=== PATIENT | male | born 1965 | race Caucasian/White ===

== ENCOUNTER 2018-09-08 05:52 | Emergency (ER) | payer OTHER, SELFPAY ==
[2018-09-08 06:02] VITALS: BP 155/88; PULSE 85; RESP 20; TEMP 38.1; O2SAT 98; BMI 33.8
--- NOTE | 2018-09-08 06:04 | ED_ITS ---
HPI - General Adult General Chief complaint: Nausea/Vomiting/Diarrhea Stated complaint: Fever, had angiogram 0628 nausea and diarrhea Time Seen by Provider: 09/08/18 05:54 Source: patient Mode of arrival: ambulatory Limitations: no limitations History of Present Illness HPI narrative: 53-year-old male. Recently underwent a coronary angiography for evaluation of chest pain and abnormal EKG. He stated that he was told that is angiogram was unremarkable. Also has a history of hypothyroidism. States that this morning about 0500 hours started having some nausea. One episode of diarrhea. Episode of diarrhea last evening. Has epigastric abdominal discomfort. Also had a fever. States he just overall does not feel very well. Patient states that he thought he potentially had the start of shingles on his left side. He did take an antiviral this morning. Related Data Home Medications Medication Instructions Recorded Confirmed levothyroxine 75 mcg PO DAILY 09/08/18 09/08/18 valacyclovir [Valtrex] 500 mg PO BID 09/08/18 09/08/18 Allergies Allergy/AdvReac Type Severity Reaction Status Date / Time meperidine [From Demerol] Allergy Verified 09/08/18 06:08 Review of Systems Constitutional Reports fever(s) Cardiovascular Denies chest pain and Denies dyspnea Respiratory Denies dyspnea Gastrointestinal Gastrointestinal: Reports abdominal pain, Reports diarrhea and Reports nausea Genitourinary Denies dysuria Musculoskeletal Denies myalgias and Denies arthralgias Integumentary/Breasts Denies rash Neurologic Denies behavioral changes Psychiatric Denies behavioral changes Hematologic/Lymphatic Denies easy bleeding and Denies easy bruising [facility] Medical History Hypothyroid (Acute) Shingles (Acute) Social History Smoking Status: Never smoker Social History Smoking Status: Never smoker Exam Initial Vital Signs Initial Vital Signs: Vital Signs Temperature 100.6 F H 09/08/18 06:02 Pulse Rate 85 09/08/18 06:02 Respiratory Rate 20 09/08/18 06:02 Blood Pressure 155/88 H 09/08/18 06:02 Pulse Oximetry 98 09/08/18 06:02 Const General: cooperative, well developed, well groomed and No acute distress Orientation: alert, awake and oriented x3 HENMT Head: normal to inspection, normocephalic and atraumatic Mouth: oral mucosae normal Resp Effort & Inspection: normal respiratory effort Auscultation: clear to auscultation bilaterally Cardio Rate: regular rate Rhythm: regular rhythm GI Inspection: non-distended Palpation: soft, No firm and tender (Tender epigastrium) Back/Spine/Pelvis Back: No CVA tenderness Skin General: no rashes or lesions noted Lesions: no lesions Rashes: no rashes Other: No rash on the left flank or patient thought that he potentially has shingles Neuro General: alert, awake and oriented x3 Cognition: normal cognition Speech: speech normal Extrem General: normal to inspection and capillary refill normal Course Orders Ordered: Discontinued Medications Acetaminophen (Tylenol) 650 mg PO NOW ONE Stop: 09/08/18 06:18 Last Admin: 09/08/18 06:22 Dose: 650 mg Sodium Chloride (Normal Saline 0.9%) 1,000 mls @ 1,000 mls/hr IV BOLUS ONE Stop: 09/08/18 07:00 Last Infusion: 09/08/18 07:16 Dose: 0 mls/hr Admin: 09/08/18 06:14 Dose: 1,000 mls/hr Ondansetron HCl (Zofran) 4 mg IV NOW ONE Stop: 09/08/18 06:02 Last Admin: 09/08/18 06:14 Dose: 4 mg Vital Signs - 8 hr 09/08/18 06:02 Temperature 100.6 F H Pulse Rate 85 Respiratory Rate 20 Blood Pressure 155/88 H Pulse Oximetry 98 Medical Decision Making Lab Data Lab results reviewed: Yes I reviewed the patient's lab results. Result diagrams: 09/08/18 06:10 09/08/18 06:10 Lab Results 09/08/18 09/08/18 09/08/18 Range/Units 06:10 06:10 06:10 WBC 17.2 H (4.5-11.0) X10^3/uL RBC 5.29 (4.5-5.9) X10^6/uL Hgb 16.7 (13.5-17.5) g/dL Hct 47.7 (41-53) % MCV 90.2 (80-100) fL MCH 31.6 (26-34) PG MCHC 35.1 (30-36) % RDW 12.5 (11.6-14.8) % Plt Count 289 (150-400) X10^3/uL Neut % (Auto) 85.0 H (50-75) % Lymph % (Auto) 7.7 L (25-40) % Emanuel % (Auto) 6.5 (3-14) % Eos % (Auto) 0.4 L (2-4) % Baso % (Auto) 0.4 (0-2) % Neut # (Auto) 56213 H (7101-6734) /uL Lymph # (Auto) 1300 (3810-1560) /uL Emanuel # (Auto) 1100 H (0-900) /uL Eos # (Auto) 100 (0-450) /uL Baso # (Auto) 100 (0-100) /uL Sodium 139 (137-145) mmol/L Potassium 3.8 (3.4-5.1) mmol/L Chloride 101 (98-107) mmol/L Carbon Dioxide 25 (22-32) mmol/L BUN 14 (9-20) mg/dL Creatinine 1.00 (0.66-1.25) mg/dL Estimated GFR > 60.0 (>60) mL/min BUN/Creatinine Ratio 14.0 (6-22) Glucose 106 H (70-100) mg/dL Lactate (0.7-2.1) mmol/L Calcium 9.5 (8.4-10.2) mg/dL Total Bilirubin 0.7 (0.2-1.3) mg/dL AST 42 (17-59) IU/L ALT 41 (21-72) IU/L Alkaline Phosphatase 70 (38-126) U/L Total Protein 7.7 (6.3-8.2) g/dL Albumin 4.4 (3.5-5.0) g/dL Globulin 3.3 (1.7-4.1) g/dL Albumin/Globulin Ratio 1.3 (1.0-2.8) Lipase 85 (23-300) U/L Procalcitonin < 0.05 (<0.5) ng/mL 09/08/18 Range/Units 06:10 WBC (4.5-11.0) X10^3/uL RBC (4.5-5.9) X10^6/uL Hgb (13.5-17.5) g/dL Hct (41-53) % MCV (80-100) fL MCH (26-34) PG MCHC (30-36) % RDW (11.6-14.8) % Plt Count (150-400) X10^3/uL Neut % (Auto) (50-75) % Lymph % (Auto) (25-40) % Emanuel % (Auto) (3-14) % Eos % (Auto) (2-4) % Baso % (Auto) (0-2) % Neut # (Auto) (0567-7878) /uL Lymph # (Auto) (9847-8879) /uL Emanuel # (Auto) (0-900) /uL Eos # (Auto) (0-450) /uL Baso # (Auto) (0-100) /uL Sodium (137-145) mmol/L Potassium (3.4-5.1) mmol/L Chloride (98-107) mmol/L Carbon Dioxide (22-32) mmol/L BUN (9-20) mg/dL Creatinine (0.66-1.25) mg/dL Estimated GFR (>60) mL/min BUN/Creatinine Ratio (6-22) Glucose (70-100) mg/dL Lactate 2.0 (0.7-2.1) mmol/L Calcium (8.4-10.2) mg/dL Total Bilirubin (0.2-1.3) mg/dL AST (17-59) IU/L ALT (21-72) IU/L Alkaline Phosphatase (38-126) U/L Total Protein (6.3-8.2) g/dL Albumin (3.5-5.0) g/dL Globulin (1.7-4.1) g/dL Albumin/Globulin Ratio (1.0-2.8) Lipase (23-300) U/L Procalcitonin (<0.5) ng/mL Urine Dip Bedside Urine Glucose Negative Bedside Urine Bilirubin - Negative Bedside Urine Ketone - Negative Urine Specific [place] 1.020 Bedside Urine Occult Blood - Negative Bedside Urine pH 6.5 Bedside Urine Protein - Negative Bedside Urine Urobilinogen - Negative Bedside Urine Nitrite - Negative Bedside Urine Leukocytes - Negative Esterase Point of care testing: Urine Dip Bedside Urine Glucose Negative Bedside Urine Bilirubin - Negative Bedside Urine Ketone - Negative Urine Specific [place] 1.020 Bedside Urine Occult Blood - Negative Bedside Urine pH 6.5 Bedside Urine Protein - Negative Bedside Urine Urobilinogen - Negative Bedside Urine Nitrite - Negative Bedside Urine Leukocytes - Negative Esterase Imaging Data Chest x-ray: Attestation: I personally reviewed and interpreted this imaging study as follows: My impression: No acute process, no focal consolidations Radiologist's impression: [address] [address] XRay Report Signed Patient: Thomas Gomez [facility]#: [id number] : 1965Acct:[id number] Age/Sex: 53 / MDate of Service: 09/08/18 Loc: ED Accession Number: [id number] Procedure: XR chest 1V Ordering Provider: Joseph Ly D.O. PROCEDURE: XR CHEST 1V INDICATIONS: Fever TECHNIQUE: One view of the chest was acquired. COMPARISON: None. FINDINGS: Surgical changes and devices: None. Lungs and pleura: Lungs are clear. No pleural effusions or pneumothorax. Mediastinum: Mediastinal contours appear normal. Heart size is normal. Bones and chest wall: No suspicious bony lesions. Overlying soft tissues appear unremarkable. IMPRESSION: No acute cardiopulmonary disease. Dictated by: Nehemias Chaparro M.D. on 09/08/2018 at 9:19 Approved by: Nehemias Chaparro M.D. on 09/08/2018 at 9:19 [facility] Narrative Medical decision making narrative: Patient with recent surgical procedure. No murmur on exam. Does have an elevated white blood cell count. Lactate unremarkable. Procalcitonin is unremarkable. EKG is unremarkable. There are no skin findings concerning for zoster however he could be feeling the symptoms before any rash appears. This could cause his fevers and chills. He is also c omplaining of generalized abdominal pain which is a fairly benign exam and also diarrhea which could also be causing his symptoms. Chest x-ray is unremarkable. Waiting on urine sample. Care turned over to day provider to follow up on urine and further disposition. Discharge Plan Departure Patient Disposition: Home Clinical Impression: Gastroenteritis Discharge Date/Time: 09/08/18 09:19 Interventions: ED Discharge Assessment Last Done: 09/08/18 09:20 Instructions: DI for Vomiting -- Adult Activity Restrictions/Additional Instructions: The your white blood cell count is moderately elevated, but otherwise, your labs and urinalysis look good. You do have a set of blood cultures pending, which will not be back for 24 hours. If the blood cultures are positive, you will be called at home. At this point in time, however, there is no evidence of a bacterial infection needing antibiotics, and no other emergent condition has been identified. Please follow up with primary care if you're not feeling better in a week. Prescriptions: No Action valacyclovir [Valtrex] 500 mg Tablet 500 mg PO BID RF: 0 levothyroxine 75 mcg Tablet 75 mcg PO DAILY RF: 0 Referrals: [facility] [Provider Group]
[2018-09-08] MEDS: ONDANSETRON 4 MG/2 ML INJ IV (06:14)
[2018-09-08] MEDS: SODIUM CHLORIDE 0.9% 1,000 ML 1000 ML IV (06:14)
[2018-09-08] MEDS: ACETAMINOPHEN 325 MG TABLET 650 MG PO (06:22)
[2018-09-08 06:23] LABS: Add Manual Diff / Slide Review NO; Basophils Absolute Auto 100 /uL (0-100); Basophils Percent Auto 0.4 % (0-2); Eosinophils Absolute Auto 100 /uL (0-450); Eosinophils Percent Auto 0.4 % (2-4); Hematocrit 47.7 % (41-53); Hemoglobin 16.7 g/dL (13.5-17.5); Lymphocytes Absolute Auto 1300 /uL (1100-4500); Lymphocytes Percent Auto 7.7 % (25-40); Mean Corpuscular HGB Conc 35.1 % (30-36); Mean Corpuscular Hemoglobin 31.6 PG (26-34); Mean Corpuscular Volume 90.2 fL (80-100); Monocytes Absolute Auto 1100 /uL (0-900); Monocytes Percent Auto 6.5 % (3-14); Neutrophils Absolute Auto 14600 /uL (1500-7000); Platelet Count 289 X10^3/uL (150-400); Red Blood Cell Count 5.29 X10^6/uL (4.5-5.9); Red Cell Distribution Width 12.5 % (11.6-14.8); White Blood Cell Count 17.2 X10^3/uL (4.5-11.0)
[2018-09-08 06:32] LABS: Alanine Aminotransferase 41 IU/L (21-72); Albumin 4.4 g/dL (3.5-5.0); Albumin Globulin Ratio 1.3 (1.0-2.8); Alkaline Phosphatase 70 U/L (38-126); Aspartate Aminotransferase 42 IU/L (17-59); Bilirubin Total 0.7 mg/dL (0.2-1.3); Blood Urea Nitrogen 14 mg/dL (9-20); Calcium 9.5 mg/dL (8.4-10.2); Carbon Dioxide 25 mmol/L (22-32); Chloride 101 mmol/L (98-107); Estimated Glomerular Filt Rate > 60.0 mL/min (>60); Globulin 3.3 g/dL (1.7-4.1); Glucose 106 mg/dL (70-100); HEMOLYSIS < 15 (0-50); Lipase 85 U/L (23-300); Potassium 3.8 mmol/L (3.4-5.1); Sodium 139 mmol/L (137-145); Total Protein 7.7 g/dL (6.3-8.2)
[2018-09-08 06:46] LABS: Procalcitonin < 0.05 ng/mL (<0.5)
[2018-09-08 06:58] VITALS: BP 130/77; PULSE 83; RESP 14; TEMP 38.4; O2SAT 95
[2018-09-08 07:16] VITALS: TEMP 37.7
[2018-09-08 07:30] VITALS: BP 125/77; PULSE 80; RESP 16; O2SAT 92
[2018-09-08 08:00] VITALS: BP 123/75; PULSE 81; RESP 16; O2SAT 95
[2018-09-08 09:07] VITALS: BP 120/74; PULSE 80; RESP 12; O2SAT 96
--- NOTE | 2018-09-09 16:23 | PC.NURSE ---
Pt calling to get results of his blood culture. Advised him preliminary showed no growth. Pt states he is still feeling ill, but will follow up with primary care in a few days. Discussed return precautions for emergency department, per Dr. Ly's discharge instructions. Pt demonstrates understanding. All questions answered.
== END 2018-09-08 09:19 | disposition home or self-care (01) ==
PROVIDERS: Emergency Provider Emergency Medicine
DX: K52.9 Noninfective gastroenteritis and colitis, unspecified (principal); R10.13 Epigastric pain
CPT/HCPCS: 36415; 36591; 71045; 80053; 81003; 83605; 83690; 84145; 85025; 87040; 96361; 96374; 99283; 99285; J2405